=== PATIENT | female | born 1950 | race Caucasian/White ===

== ENCOUNTER 2019-06-05 14:48 | Emergency (ER) | payer MEDICARE, BC ==
--- NOTE | 2019-06-05 15:48 | EDM.PDOC ---
ED HPI GENERAL MEDICAL PROBLEM - General Chief Complaint: Neck Problem Stated Complaint: PAIN ON BACK OF NECK Time Seen by Provider: 06/05/19 15:30 Source of Information: Reports: Patient History Limitations: Reports: No Limitations - History of Present Illness INITIAL COMMENTS - FREE TEXT/NARRATIVE: Azra is a 68 year old female, hx of "borderline" hypertension, not on medication presents to the ED today with c/o right lateral neck pain and right shoulder pain. Patient denies any injury/trauma or cervical spine issue hx. Patient took Advil with some relief in her symptoms. Patient does c/o some numbness to shoulder, nothing down arm. Patient denies any chest pain/sob. Patient wonders if she had an insect bite or something that is causing her symptoms. Patient denies any rashes or other complaints. Onset: Gradual Duration: Day(s): (1) - Related Data Allergies Allergy/AdvReac Type Severity Reaction Status Date / Time bacitracin [From Cortisporin] Allergy Rash Verified 06/05/19 15:41 hydrocortisone Allergy Rash Verified 06/05/19 15:41 [From Cortisporin] neomycin [From Cortisporin] Allergy Rash Verified 06/05/19 15:41 Penicillins Allergy Rash Verified 06/05/19 15:40 polymyxin B Allergy Rash Verified 06/05/19 15:41 [From Cortisporin] Sulfa (Sulfonamide Allergy Mouth Sores Verified 06/05/19 15:40 Antibiotics) Home Meds: Home Meds NK [No Known Home Meds] 06/05/19 [History] ED ROS GENERAL - Review of Systems Review Of Systems: ROS reveals no pertinent complaints other than HPI. ED EXAM, UPPER BACK/NECK PAIN - Physical Exam Exam: See Below Exam Limited By: No Limitations General Appearance: Alert, WD/WN, No Apparent Distress Nose Exam: Normal Inspection Throat/Mouth Exam: Normal Oropharynx Neck Exam: Non-Tender, Full Range of Motion, Other (deep palpation to right lateral neck "feels good"). No: Painful Range of Motion, Tenderness, Tender Lateral, Tender Midline Cardiovascular/Respiratory: Regular Rate, Rhythm Back Exam: Normal Inspection, Full Range of Motion. No: Paraspinal Tenderness, Vertebral Tenderness Extremities: Normal Inspection Neurologic: No Motor/Sensory Deficits, Alert, Normal Mood/Affect, Oriented x 3 Psychiatric: Normal Affect, Normal Mood Skin Exam: Normal Color, Warm/Dry Lymphatic: No Adenopathy EKG INTERPRETATION EKG Date: 06/05/19 Time: 15:55 Rhythm: NSR [place]: Normal QRS: Normal ST-T: Normal QT: Normal Comparison: NA - No Prior EKG (Reviewed with Dr. Aparicio as well, agreed with above) Course - Vital Signs Last Recorded V/S: Last Vital Signs Temp 36.6 C 06/05/19 15:20 Pulse 89 06/05/19 15:20 Resp 16 06/05/19 15:20 BP 196/103 H 06/05/19 15:20 Pulse Ox 100 06/05/19 15:20 Azar is a 68 year old female who presents to the ED today with c/o right lateral neck pain/tenderness and right upper back numbness. Patient reports that her symptoms started last night, she took some aspirin and went to bed, when she woke up she felt fine, then symptoms started again this afternoon. Patient arrives here hypertensive, she denies any chest pain or sob. She denies any headache, no neuro/focal findings or deficits on exam. Patient exam and presentation certainly seems musculoskeletal in nature. Likely mild inflammation vs. muscle spasm. I did obtain an EKG to ensure that this was no an atypical cardiac presentation, which I again feel is unlikely, this was negative for any acute cardiac etiology. I encouraged patient to continue with Ibuprofen 600 mg every 6 hours and will send her home with Robaxin for muscle spasms. I would like patient to monitor her blood pressure and follow up in clinic this week. Reasons to return to the ED discussed in detail. Patient agreeable to plan of care and discharged in stable condition with her daughter driving. - Orders/Labs/Meds Orders: Active Orders 24 hr Category Date Time Status EKG Documentation Completion [RC] ASDIRECTED Care 06/05/19 15:40 Active EKG 12 Lead [EK] Routine Ther 06/05/19 15:40 Ordered Departure - Departure Time of Disposition: 16:15 Disposition: Home, Self-Care 01 Condition: Good Clinical Impression: Neck pain on right side - Discharge Information Instructions: Muscle Cramps and Spasms, [id number], Muscle Pain, Adult Referrals: PCP,None [Primary Care Provider] - Forms: ED Department Discharge Additional Instructions: I would recommend Ibuprofen 600 mg every 6 hours for the next 2-3 days. Tylenol as needed for pain. Robaxin for muscle spasm, see how this makes you feel, it is not a narcotic but may make you sleep so do not drive until you know for sure. Ice/heat to shoulder/right neck. They do have lidocaine patches that you can find over the counter, 4% that may be helpful. These help with the pain, you wear them for 12 hours then have them off for 12 hours. I want you to keep an eye on your blood pressure, please follow up in clinic this next week if it continue to remain elevated. Your EKG is reassuring. - My Orders Last 24 Hours: My Active Orders 06/05/19 15:40 EKG Documentation Completion [RC] ASDIRECTED EKG 12 Lead [EK] Routine - Assessment/Plan Last 24 Hours: My Active Orders 06/05/19 15:40 EKG Documentation Completion [RC] ASDIRECTED EKG 12 Lead [EK] Routine
== END 2019-06-05 16:07 | disposition home or self-care (01) ==
LOC: JP.ED 14:48
DX: M54.2 Cervicalgia (principal); M25.511 Pain in right shoulder; Z88.2 Allergy status to sulfonamides; Z88.1 Allergy status to other antibiotic agents; Z88.0 Allergy status to penicillin
CPT/HCPCS: 93005; 93010; 99283; 99283-25